=== PATIENT | male | born 1950 | race Caucasian/White ===

== ENCOUNTER → 2016-05-17 | Outpatient (CLI) | payer MEDICARE ==
[~2016-05-17] MED LIST: FLOMAX0.4 MG PO; IRON325 MG PO; PROAIR RESPICL90 MCG IH
== END | disposition home or self-care (01) ==
LOC: CDC 10:09
DX: R94.31 Abnormal electrocardiogram [ECG] [EKG] (principal); I44.4 Left anterior fascicular block; I49.9 Cardiac arrhythmia, unspecified
CPT/HCPCS: 93000

== ENCOUNTER 2016-05-24 06:22 | Inpatient (IN) | payer OTHER ==
[~2016-05-24] VITALS: Ht 177.8 cm; Wt 88.5 kg
[2016-05-24 06:53] VITALS: BP 114/70
[2016-05-24] MEDS ORDERED: PERCOCET 5/31 TABLET PO (11:19)
[2016-05-24] MEDS ORDERED: BACTRIM,SEPT1 TABLE1 PO (11:19)
[2016-05-24 14:55] LABS: HEMATOCRIT 36.6 % (38.0-50.0); MCV 90.6 FL (86-99)
[2016-05-24 16:00] VITALS: BP 112/59
[2016-05-24 23:30] VITALS: BP 100/58
[2016-05-25 07:12] LABS: HEMATOCRIT 33.6 % (38.0-50.0); MCV 91.1 FL (86-99)
[2016-05-25 07:40] LABS: ANION GAP 7 MEQ/L (2-14); CHLORIDE 105 MEQ/L (99-109); GFR ESTIMATE (CALCULATED) > 59 mL/min/; GLUCOSE 88 mg/dL (70-99); POTASSIUM 3.9 MEQ/L (3.7-5.4); SAMPLE HEMOLYSIS CHECK 0; SAMPLE ICTERIC CHECK 0; SAMPLE LIPEMIA CHECK 0; SODIUM 135 MEQ/L (136-147); UREA NITROGEN (BUN) 10 mg/dL (9-23)
[2016-05-25 08:10] VITALS: BP 107/55
[2016-05-25 11:38] VITALS: BP 103/56
[2016-05-25 15:58] VITALS: BP 117/62
[2016-05-25 19:30] VITALS: BP 105/62
[2016-05-25 23:25] VITALS: BP 122/67
[2016-05-26 03:31] VITALS: BP 119/60
[2016-05-26 03:33] VITALS: BP 119/60
[2016-05-26 08:26] VITALS: BP 114/56
[2016-05-26 13:05] VITALS: BP 112/57
== END 2016-05-26 13:15 | disposition home or self-care (01) | DRG 716 ==
LOC: 2SOUTH → 5EAST 06:22 → 2SOUTH 08:26 → 5EAST 15:11
PROVIDERS: Urology
DX: C61 Malignant neoplasm of prostate (principal); R97.20 Elevated prostate specific antigen [PSA]; F17.290 Nicotine dependence, other tobacco product, uncomplicated; Z98.1 Arthrodesis status; Z96.652 Presence of left artificial knee joint
CPT/HCPCS: 80048; 85014; 85018; 88305; 88309; 94640; G0008; J0330; J1170; J1580; J1885; J2250; J2710; J3010; J7050; J7120

== ENCOUNTER → 2016-08-29 | Outpatient (CLI) | payer OTHER ==
[~2016-08-29] MED LIST changes: +BACTRIM,SEPT1 TABLE1 PO; +PERCOCET 5/31 TABLET PO
== END | disposition home or self-care (01) ==
LOC: NUC 08:51
DX: M47.897 Other spondylosis, lumbosacral region (principal); Z96.652 Presence of left artificial knee joint; R93.7 Abnormal findings on diagnostic imaging of other parts of musculoskeletal system
CPT/HCPCS: 78306; A9503